=== PATIENT | female | born 1990 | race Caucasian/White ===

== ENCOUNTER 2021-11-08 18:39 | Emergency (ER) | payer BC, OTHER ==
[~2021-11-08 18:39] MED LIST: CEFUROXIME250 MG PO; FERROUS SULFAT325 M2 PO; KEFLEX CAP 500500 MG PO; LEVAQUIN500 MG PO; NORCO 5-325 TA1 EACH PO; TORADOL 10 MG T10 MG PO; ZOFRAN4 MG PO
[2021-11-08 19:26] LABS: HEMOGLOBIN 13.8 gm/dl (12.3-15.3); RED BLOOD COUNT 4.29 M/UL (4.00-5.10); WHITE BLOOD COUNT 20.4 K/UL (4.5-11.0)
[2021-11-08 19:52] LABS: BUN/CREATININE RATIO 15 (0-10)
[2021-11-08] MEDS ORDERED: OMNICEF 300 MG300 MG PO (23:39)
[2021-11-08] MEDS ORDERED: IBU600 MG PO (23:39)
== END 2021-11-09 00:07 | disposition home or self-care (01) ==
LOC: ER1 18:39
PROVIDERS: Emergency Medicine
DX: N39.0 Urinary tract infection, site not specified (principal); Z87.442 Personal history of urinary calculi; Z88.2 Allergy status to sulfonamides
CPT/HCPCS: 80053; 81001; 84703; 85025; 96372; 96374; 99284; J0696; J1885